=== PATIENT | female | born 1935 | race Two or more races ===

== ENCOUNTER 2021-10-31 19:46 | Inpatient (IN) | payer MEDICARE, BC ==
[~2021-10-31] VITALS: Ht 160 cm; Wt 61.7 kg
[2021-10-31] MEDS ORDERED: MAGNESIUM HYDROXIDE 30 ML UDC PO PRN (22:00)
[2021-10-31] MEDS ORDERED: BLOOD SUGAR DIAGNOSTIC 1 EACH STRIP IN ONE (22:00)
[2021-10-31] MEDS ORDERED: MAG HYDROX/AL HYDROX/SIMETH 30 ML UDC PO PRN (22:00)
[2021-10-31] MEDS ORDERED: ACETAMINOPHEN 325 MG TABLET PO PRN ×2 (22:00→23:30)
[2021-10-31] MEDS ORDERED: HYDR-3972 PO (22:46)
[2021-10-31] MEDS ORDERED: FENO54TA PO (22:46)
[2021-10-31] MEDS ORDERED: QUET50TA PO (22:46)
[2021-10-31] MEDS ORDERED: METO-357 PO (22:46)
[2021-10-31] MEDS ORDERED: ATEN25TA PO (22:46)
[2021-10-31] MEDS ORDERED: NIFE-35 PO (22:46)
[2021-10-31] MEDS ORDERED: QUET25TA PO (22:46)
[2021-11-01] MEDS ORDERED: ALBUTEROL FS 2.5 MG/3 ML VIAL.NEB NEB PRN (00:30)
[2021-11-01] MEDS: TEMAZEPAM 7.5 MG CAPSULE PO PRN ×2 (01:23→21:39)
[2021-11-01 03:11] VITALS: BP 128/55
[2021-11-01 07:33] LABS: CHOLESTEROL 157 mg/dL (<200); HDL CHOLESTEROL 39 mg/dL (40-60); LDL 91 mg/dL (0-99); TRIGLYCERIDES 114 mg/dL (30-150)
[2021-11-01 07:39] LABS: ALANINE AMINOTRANSFERASE 21 U/L (12-78); ALBUMIN 2.7 g/dL (3.4-5.0); ALKALINE PHOSPHATASE 91 U/L (46-116); ASPARTATE AMINOTRANSFERASE 14 U/L (15-37); BILIRUBIN,TOTAL 0.4 mg/dL (0.2-1.0); CALCIUM, SERUM 9.4 mg/dL (8.5-10.1); CARBON DIOXIDE 26 mmol/L (21-32); CHLORIDE 99 mmol/L (98-107); CREATININE 0.8 mg/dL (0.6-1.3); GLUCOSE 102 mg/dL (74-106); POTASSIUM 4.1 mmol/L (3.5-5.1); SODIUM SERUM 132 mmol/L (136-145); TOTAL PROTEIN, SERUM 6.6 g/dL (6.4-8.2); UREA NITROGEN, BLOOD 12 mg/dL (7-18)
[2021-11-01 08:00] VITALS: BP 116/65
[2021-11-01] MEDS: NIFEdipine XL (30MG) 30 MG TAB PO SCH ×3 (09:00→16:23)
[2021-11-01] MEDS ORDERED: HYDROCODONE/APAP 5/325MG TABLET PO SCH (09:00)
[2021-11-01] MEDS: Fenofibrate 48 MG TABLET PO SCH (09:06)
[2021-11-01] MEDS: METOPROLOL SUCCINATE 50 MG TAB.SR.24H PO SCH ×2 (09:08→16:22)
[2021-11-01] MEDS: ATENOLOL 25 MG TABLET PO SCH (09:09)
[2021-11-01] MEDS: LORAZEPAM 0.5 MG TABLET PO PRN (11:26)
[2021-11-01 16:00] VITALS: BP 127/68
[2021-11-01] MEDS: HYDROCODONE/APAP 5/325MG TABLET PO PRN (18:08)
[2021-11-01 20:00] VITALS: BP 123/60
[2021-11-01] MEDS: MIRTAZAPINE 15 MG TABLET PO SCH (21:39)
[2021-11-02 08:00] VITALS: BP 120/61
[2021-11-02] MEDS: busPIRone 5 MG TABLET PO SCH ×3 (08:13→16:32)
[2021-11-02] MEDS: NIFEdipine XL (30MG) 30 MG TAB PO SCH ×2 (08:14→16:33)
[2021-11-02] MEDS: ATENOLOL 25 MG TABLET PO SCH (08:14)
[2021-11-02] MEDS: Fenofibrate 48 MG TABLET PO SCH (08:14)
[2021-11-02] MEDS: METOPROLOL SUCCINATE 50 MG TAB.SR.24H PO SCH ×2 (08:15→16:33)
[2021-11-02] MEDS: LORAZEPAM 0.5 MG TABLET PO PRN (10:05)
[2021-11-02] MEDS: HYDROCODONE/APAP 5/325MG TABLET PO PRN ×2 (11:39→21:46)
[2021-11-02 16:00] VITALS: BP 126/73
[2021-11-02] MEDS: clonazePAM 0.5 MG TABLET PO SCH (19:49)
[2021-11-02 20:00] VITALS: BP_SYST 127; BP_DIAS 48; BP_DIAS 98
[2021-11-02] MEDS: MIRTAZAPINE 15 MG TABLET PO SCH (21:24)
[2021-11-03] MEDS: LORAZEPAM 0.5 MG TABLET PO PRN ×2 (04:09→15:04)
[2021-11-03] MEDS: clonazePAM 0.5 MG TABLET PO SCH (06:26)
[2021-11-03 08:00] VITALS: BP 125/54
[2021-11-03] MEDS: METOPROLOL SUCCINATE 50 MG TAB.SR.24H PO SCH ×2 (09:05→16:29)
[2021-11-03] MEDS: Fenofibrate 48 MG TABLET PO SCH (09:05)
[2021-11-03] MEDS: NIFEdipine XL (30MG) 30 MG TAB PO SCH ×2 (09:06→16:30)
[2021-11-03] MEDS: ATENOLOL 25 MG TABLET PO SCH (09:06)
[2021-11-03] MEDS: HYDROCODONE/APAP 5/325MG TABLET PO PRN ×2 (09:16→15:51)
[2021-11-03 16:00] VITALS: BP 149/80
[2021-11-03 20:00] VITALS: BP 134/59
[2021-11-03] MEDS: MIRTAZAPINE 15 MG TABLET PO SCH (21:11)
[2021-11-04 08:00] VITALS: BP 124/67
[2021-11-04] MEDS: clonazePAM 0.5 MG TABLET PO SCH ×3 (09:31→18:05)
[2021-11-04] MEDS: NIFEdipine XL (30MG) 30 MG TAB PO SCH ×2 (09:40→18:06)
[2021-11-04] MEDS: METOPROLOL SUCCINATE 50 MG TAB.SR.24H PO SCH ×2 (09:40→18:06)
[2021-11-04] MEDS: Fenofibrate 48 MG TABLET PO SCH (09:40)
[2021-11-04] MEDS: ATENOLOL 25 MG TABLET PO SCH (09:43)
[2021-11-04] MEDS: HYDROCODONE/APAP 5/325MG TABLET PO PRN ×2 (09:58→18:45)
[2021-11-04 16:00] VITALS: BP 153/74
[2021-11-04 20:11] VITALS: BP 148/68
[2021-11-04] MEDS: MIRTAZAPINE 15 MG TABLET PO SCH (21:55)
[2021-11-05 08:00] VITALS: BP 126/66
[2021-11-05] MEDS: ATENOLOL 25 MG TABLET PO SCH (08:58)
[2021-11-05] MEDS: clonazePAM 0.5 MG TABLET PO SCH ×3 (08:58→18:00)
[2021-11-05] MEDS: Fenofibrate 48 MG TABLET PO SCH (08:58)
[2021-11-05] MEDS: METOPROLOL SUCCINATE 50 MG TAB.SR.24H PO SCH ×2 (08:59→18:00)
[2021-11-05] MEDS: NIFEdipine XL (30MG) 30 MG TAB PO SCH ×2 (08:59→18:01)
[2021-11-05 16:00] VITALS: BP 125/64
[2021-11-05 19:50] VITALS: BP 151/71
[2021-11-05] MEDS: MIRTAZAPINE 15 MG TABLET PO SCH (22:02)
[2021-11-06 08:00] VITALS: BP 133/68
[2021-11-06] MEDS: METOPROLOL SUCCINATE 50 MG TAB.SR.24H PO SCH ×2 (08:10→17:07)
[2021-11-06] MEDS: NIFEdipine XL (30MG) 30 MG TAB PO SCH ×2 (08:11→17:06)
[2021-11-06] MEDS: clonazePAM 0.5 MG TABLET PO SCH ×3 (08:11→17:05)
[2021-11-06] MEDS: Fenofibrate 48 MG TABLET PO SCH (08:11)
[2021-11-06] MEDS: ATENOLOL 25 MG TABLET PO SCH (08:12)
[2021-11-06 16:00] VITALS: BP 151/72
[2021-11-06] MEDS: HYDROCODONE/APAP 5/325MG TABLET PO PRN (16:07)
[2021-11-06 19:56] VITALS: BP 113/55
[2021-11-06] MEDS: MIRTAZAPINE 15 MG TABLET PO SCH (21:23)
[2021-11-07 08:00] VITALS: BP 116/60
[2021-11-07] MEDS: clonazePAM 0.5 MG TABLET PO SCH (08:52)
[2021-11-07] MEDS: METOPROLOL SUCCINATE 50 MG TAB.SR.24H PO SCH (08:53)
[2021-11-07] MEDS: ATENOLOL 25 MG TABLET PO SCH (08:54)
[2021-11-07] MEDS: Fenofibrate 48 MG TABLET PO SCH (08:54)
[2021-11-07] MEDS: NIFEdipine XL (30MG) 30 MG TAB PO SCH (08:55)
[2021-11-07 10:00] VITALS: BP 116/60
== END 2021-11-07 12:00 | disposition still patient (30) | DRG 881 ==
LOC: GPS 21:31
PROVIDERS: ADMIT Psychiatry & Neurology Psychiatry; ATTEND Student in an Organized Health Care Education/Training Program
DX: F32.9 Major depressive disorder, single episode, unspecified (principal); N18.9 Chronic kidney disease, unspecified; F41.9 Anxiety disorder, unspecified; E78.5 Hyperlipidemia, unspecified; I12.9 Hypertensive chronic kidney disease with stage 1 through stage 4 chronic kidney disease, or unspecified chronic kidney disease; T40.2X1D Poisoning by other opioids, accidental (unintentional), subsequent encounter; J45.909 Unspecified asthma, uncomplicated; I25.10 Atherosclerotic heart disease of native coronary artery without angina pectoris
CPT/HCPCS: 36415; 80053-TC; 80061-TC; 82962-TC